=== PATIENT | male | born 1995 | race Caucasian/White ===

== ENCOUNTER 2017-06-23 13:22 | Emergency (ER) | payer BC, SELFPAY ==
[2017-06-23 14:11] VITALS: BP 119/70; PULSE 67; RESP 20; TEMP 36.7; O2SAT 98; BMI 28.0
--- NOTE | 2017-06-23 15:06 | HMH.EDUTC ---
[facility] – [place] Disposition Clinical Impression: Gastroenteritis Disposition: Home, Self-Care Condition on Discharge: Good Instructions: DI for Viral Gastroenteritis -- Adult Additional Instructions: * Could be due to something you ate or a virus. * Monitor Temp. Seek treatment if fever develops. * Follow up immediately for new or worsening symptoms OR no noticeable improvement over the next 48 hours. * Increase fluids. Water, gatorade, powerade, juice OR pedialyte with limited formula/dairy in children. * No food is ok as long as you or your child is drinking. Once ready to eat, start bland. bananas, rice, applesauce, toast * Contagious if this is viral until no diarrhea, vomiting, fever x 24 hours without medication * Avoid anti-diarrheals unless told otherwise. Best to let the virus run its course. * Promethazine as needed for nausea or vomiting. WILL cause drowsiness. Is what you had here so no dose for 6-8 hours. Follow up IMMEDIATELY for new or worsening symptoms OR no noticeable improvement over the next 48 hours. Prescriptions: Promethazine HCl [Phenergan 25mg tab] 25 mg PO Q6H PRN #10 tab PRN Reason: Nausea And Vomiting Time of Disposition: 16:00 Medical Decision Making Vital Signs: 06/23/17 14:11 Temperature 98.1 F Temperature Source Temporal Artery Scan Pulse Rate [Right Brachial] 67 Respiratory Rate 20 Blood Pressure [Right Arm] 119/70 Blood Pressure Mean [Right Arm] 86 Blood Pressure Source [Right Arm] Automatic Cuff Blood Pressure Position [Right Arm] Sitting 02 Sat by Pulse Oximetry 98 Oxygen Delivery Method Room Air Orders (Tests/Meds): ED MEDICATIONS Discontinued Medications Generic Name Dose Route Start Last Admin Trade Name Freq PRN Reason Stop Dose Admin Promethazine HCl 25 mg 06/23/17 15:16 06/23/17 15:36 Phenergan 25mg/Ml 1ml Vial IM 06/23/17 15:17 25 mg ONCE ONE Administration Sodium Chloride 25 ml 06/23/17 15:16 Sod Chlor 0.9% 25ml Bag IV 06/23/17 15:17 ONCE ONE - Dylan Inquiry Pt receiving controlled substance: No - Reevaluation(s) Time: 15:55 Reevaluation #1: Father came to desk and reports patient is feeling better. Saw pt. Sitting up. Smiling. Reports nausea and cramping significantly improved and ready to go home to sleep. [facility] [place] HPI - General Stated complaint: stomach pain n/d Time Seen by Provider: 06/23/17 15:06 Mode of Arrival: Ambulatory Source of Information: Patient Limitations: No Limitations Description of Symptoms (Recalled from Triage Doc. by RN): STOMACH PAIN, DIARRHEA, NAUSEA HEENT Symptoms (Recalled from RN notes): No Resp Symptoms (Recalled from RN notes): No Skin Symptoms (Recalled from RN notes): No MS Symptoms (Recalled from RN notes): No Functional Status (Recalled from RN notes): N/A - History of Present Illness Provider Complaint: c/o n/v/d. Started with nausea last night after eating out at [employer] in [place]. had n/v/d while there but thought due to being . Woke up this morning with horrible diarrhea and cramping . dry heaved mostly. Vomited bile once 1-2 hours ago. Diarrhea already slowed way down . Was frequent and watery. Primarily now nausea and abdominal cramps. Denies fever. - Related Data Previous Rx's Medication Instructions Recorded Promethazine HCl [Phenergan 25mg 25 mg PO Q6H PRN #10 tab 06/23/17 tab] Allergies Allergy/AdvReac Type Severity Reaction Status Date / Time No Known Allergies Allergy Verified 06/23/17 14:16 - Worker's Comp Is this a Worker's Comp case?: No [facility] History I have reviewed the patient's past medical history: Yes Medical History: Reports:: Gastroesophageal Reflux Disease(GERD) Denies:: Cancer, Diabetes Mellitus Type 1, Diabetes Mellitus Type 2, Hypertension, MRSA Other Surgeries: Yes: Other (collar bone repaired) Amputation: No Fractures: No - *Social History Smoking Status: Current every day smoker Tobacco
--- NOTE | 2017-06-23 15:16 | ED_ITS ---
[facility] [place] Impression: Gastroenteritis Disposition: Home, Self-Care Condition on Discharge: Good Instructions: DI for Viral Gastroenteritis -- Adult Additional Instructions: * Could be due to something you ate or a virus. * Monitor Temp. Seek treatment if fever develops. * Follow up immediately for new or worsening symptoms OR no noticeable improvement over the next 48 hours. * Increase fluids. Water, gatorade, powerade, juice OR pedialyte with limited formula/dairy in children. * No food is ok as long as you or your child is drinking. Once ready to eat, start bland. bananas, rice, applesauce, toast * Contagious if this is viral until no diarrhea, vomiting, fever x 24 hours without medication * Avoid anti-diarrheals unless told otherwise. Best to let the virus run its course. * Promethazine as needed for nausea or vomiting. WILL cause drowsiness. Is what you had here so no dose for 6-8 hours. Follow up IMMEDIATELY for new or worsening symptoms OR no noticeable improvement over the next 48 hours. Prescriptions: Promethazine HCl [Phenergan 25mg tab] 25 mg PO Q6H PRN #10 tab PRN Reason: Nausea And Vomiting Time of Disposition: 16:00 Medical Decision Making Vital Signs: 06/23/17 14:11 Temperature 98.1 F Temperature Source Temporal Artery Scan Pulse Rate [Right Brachial] 67 Respiratory Rate 20 Blood Pressure [Right Arm] 119/70 Blood Pressure Mean [Right Arm] 86 Blood Pressure Source [Right Arm] Automatic Cuff Blood Pressure Position [Right Arm] Sitting 02 Sat by Pulse Oximetry 98 Oxygen Delivery Method Room Air Orders (Tests/Meds): ED MEDICATIONS Discontinued Medications Generic Name Dose Route Start Last Admin Trade Name Freq PRN Reason Stop Dose Admin Promethazine HCl 25 mg 06/23/17 15:16 06/23/17 15:36 Phenergan 25mg/Ml 1ml Vial IM 06/23/17 15:17 25 mg ONCE ONE Administration Sodium Chloride 25 ml 06/23/17 15:16 Sod Chlor 0.9% 25ml Bag IV 06/23/17 15:17 ONCE ONE - Dylan Inquiry Pt receiving controlled substance: No - Reevaluation(s) Time: 15:55 Reevaluation #1: Father came to desk and reports patient is feeling better. Saw pt. Sitting up. Smiling. Reports nausea and cramping significantly improved and ready to go home to sleep. [facility] [place] General Stated complaint: stomach pain n/d Time Seen by Provider: 06/23/17 15:06 Mode of Arrival: Ambulatory Source of Information: Patient Limitations: No Limitations Description of Symptoms (Recalled from Triage Doc. by RN): STOMACH PAIN, DIARRHEA, NAUSEA HEENT Symptoms (Recalled from RN notes): No Resp Symptoms (Recalled from RN notes): No Skin Symptoms (Recalled from RN notes): No MS Symptoms (Recalled from RN notes): No Functional Status (Recalled from RN notes): N/A - History of Present Illness Provider Complaint: c/o n/v/d. Started with nausea last night after eating out at [employer] in [place]. had n/v/d while there but thought due to being . Woke up this morning with horrible diarrhea and cramping . dry heaved mostly. Vomited bile once 1-2 hours ago. Diarrhea already slowed way down . Was frequent and watery. Primarily now nausea and abdominal cramps. Denies fever. - Related Data Previous Rx's Medication Instructions Recorded Promethazine HCl [Phenergan 25mg 25 mg PO Q
[2017-06-23 16:03] VITALS: BP 119/70; PULSE 67; RESP 20; TEMP 36.7; O2SAT 98
== END 2017-06-23 16:04 | disposition home or self-care (01) ==
PROVIDERS: Emergency Provider Nurse Practitioner Family
DX: K52.9 Noninfective gastroenteritis and colitis, unspecified (principal); F17.210 Nicotine dependence, cigarettes, uncomplicated
CPT/HCPCS: 96372; 99202